=== PATIENT | female | born 2000 | race Caucasian/White ===

== ENCOUNTER 2022-10-01 22:04 | Emergency (ER) | payer BC ==
[2022-10-01 22:51] LABS: ESTIMATED GFR 127 mL/min (>60)
[2022-10-01] MEDS ORDERED: Iopamidol 755 Mg/ML 100 ML Bottle IV ONE (23:25)
== END 2022-10-02 00:35 | disposition home or self-care (01) ==
LOC: FB.ED 22:04
DX: R10.31 Right lower quadrant pain (principal); Z79.899 Other long term (current) drug therapy
CPT/HCPCS: 36415; 74177; 80048; 81001; 83605; 85025; 86140; 99284; Q9967

== ENCOUNTER 2023-04-05 17:18 | Emergency (ER) | payer BC ==
[2023-04-05] MEDS ORDERED: Acetaminophen/HYDROcodone 325-5 MG Tab PO ONE (17:19)
[2023-04-05] MEDS ORDERED: Ketorolac 30 MG/ML SDV IM ONE (17:26)
[2023-04-05] MEDS ORDERED: Acetaminophen/HYDROcodone 325-7.5 MG Tab PO ONE (18:29)
== END 2023-04-05 19:55 | disposition home or self-care (01) ==
LOC: FB.ED 17:18
DX: S82.832A Other fracture of upper and lower end of left fibula, initial encounter for closed fracture (principal); Z88.5 Allergy status to narcotic agent; X50.1XXA Overexertion from prolonged static or awkward postures, initial encounter
CPT/HCPCS: 73610; 96372; 99283; A9270; J1885